=== PATIENT | male | born 1960 | race Caucasian/White ===

== ENCOUNTER 2023-07-24 06:50 | Day surgery (SDC) | payer OTHER ==
[2023-07-24] VITALS (8 sets, daily range): BP systolic 119–148; BP diastolic 70–96
[~2023-07-24] VITALS: Ht 180.3 cm; Wt 93.4 kg
[~2023-07-24 06:50] MED LIST: LOSA50 PO; PRAV20 PO
--- NOTE | 2023-07-24 09:30 | NUR ---
PT TO DAY SURGERY STEP DOWN FROM PACU. PT IS AWAKE, ALERT AND ORIENTED; ABLE TO MOVE SELF IN BED. DENIES PAIN. PT HAS 1 DRESSING ON LOWER RIGHT QUADRANT, CLEAN GUAZE WITH CLEAR TAPE ON TOP; C/D/I. VSS. PT HAS NO COMPLAINTS.
--- NOTE | 2023-07-24 09:47 | NUR ---
PT TOLERATING PO FLUIDS WELL, DECLINES CRACKERS. INCISION C/D/I. ICE PACK MADE. Discharge instructions reviewed with patient. Patient verbalizes understanding. Copy given to patient to take home. Patient States Post-Procedure ride home has been arranged.
--- NOTE | 2023-07-24 10:02 | NUR ---
PT FEELING WELL, DESIRES TO GO HOME. Patient up to Ambulate independently. Gait steady. Discharged via wheelchair to private car for ride home.
== END 2023-07-24 10:04 | disposition home or self-care (01) ==
LOC: ORSCMMR 06:50 → ORD 08:00 → ORSCMMR 08:00
PROVIDERS: Surgery
PROC: 0YU50JZ Supplement Right Inguinal Region with Synthetic Substitute, Open Approach (ICD-10-PCS; principal; 2023-07-24 08:00)
DX: K40.90 Unilateral inguinal hernia, without obstruction or gangrene, not specified as recurrent (principal); I10 Essential (primary) hypertension; E78.00 Pure hypercholesterolemia, unspecified; E78.1 Pure hyperglyceridemia; Z79.899 Other long term (current) drug therapy
CPT/HCPCS: C1781; J0690; J1100; J1885; J2250; J2405; J2704; J3010; J7120